=== PATIENT | male | born 1960 | race Caucasian/White ===

== ENCOUNTER 2018-11-21 08:25 | Day surgery (SDC) | payer OTHER | END 2018-11-21 12:50 | disposition home or self-care (01) | LOC: AMB-ENDOS 08:25 | DX: K63.5 Polyp of colon (principal) ==

== ENCOUNTER 2018-12-03 06:05 | Inpatient (IN) | payer OTHER ==
[~2018-12-03] VITALS: Ht 170.2 cm; Wt 88.9 kg
--- NOTE | 2018-12-03 06:27 | NUR ---
SE RECIBE PTE ALERTA Y ORIENTADO X3, PTE REFIERE QUE DESDE EL VIERNES PRESENTA DOLOR ABDOMINAL. PTE REFIERE PADECER DE DIVERTICULOS.
--- NOTE | 2018-12-03 07:42 | NUR ---
MS Y KAUR COLECTA MUESTRAS DE [place], CANALIZA VENA Y ADMINISTRA MEDICAMENTOS.
--- NOTE | 2018-12-03 15:03 | NUR ---
SE RECIBE PACIENTE ALERTA Y ORIENTADO EN CAMA CON BARRANDAS ELEVADAS POR LANGFORD SEGURIDAD. PACIENTE CON H/L PATENTE ESTHER DE EDEMA Y ERRITEMA . PACIENTE EN ESPERA DE CONSULTA CON EL DR. RUIZ.
[2018-12-04] MEDS ORDERED: VALSARTAN-HCTZ1 EAC4 PO (08:56)
== END 2018-12-07 14:45 | disposition home or self-care (01) | DRG 392 ==
LOC: ER 06:05 → MEDJ 15:07 → SURG 12-07 09:51
PROVIDERS: ADMIT Student in an Organized Health Care Education/Training Program
PROC: BW21ZZZ Computerized Tomography (CT Scan) of Abdomen and Pelvis (ICD-10-PCS; principal; 2018-12-03)
DX: K57.32 Diverticulitis of large intestine without perforation or abscess without bleeding (principal); K57.30 Diverticulosis of large intestine without perforation or abscess without bleeding; D12.5 Benign neoplasm of sigmoid colon; E11.65 Type 2 diabetes mellitus with hyperglycemia

== ENCOUNTER 2019-04-30 11:47 | Emergency (ER) | payer OTHER ==
[~2019-04-30] VITALS: Ht 172.7 cm; Wt 89.4 kg
[~2019-04-30 11:47] MED LIST: VALSARTAN-HCTZ1 EAC4 PO
[2019-04-30] MEDS ORDERED: DUI500 PO (12:51)
[2019-04-30] MEDS ORDERED: MUPIROCIN15 GM TOP (12:51)
== END 2019-04-30 13:31 | disposition home or self-care (01) ==
LOC: ER 11:47
DX: S61.251A Open bite of left index finger without damage to nail, initial encounter (principal); W54.0XXA Bitten by dog, initial encounter; Y93.89 Activity, other specified; Y92.098 Other place in other non-institutional residence as the place of occurrence of the external cause; Y99.8 Other external cause status